=== PATIENT | male | born 2000 | race Caucasian/White ===

== ENCOUNTER 2020-09-07 16:54 | Emergency (ER) | payer BC ==
[~2020-09-07] VITALS: Ht 182.9 cm; Wt 61.0 kg
--- NOTE | 2020-09-07 17:45 | RAD ---
Exam: Left humerus 2 views INDICATION: Crush injury TECHNIQUE: Frontal and lateral views of the humerus Comparisons: None FINDINGS: Bone mineralization is normal. No acute or healed fractures. Soft tissues are unremarkable. Joint [place] are well-maintained. IMPRESSION: No acute osseous abnormality. Electronically signed by: Alma Cornell MD (09/07/2020 5:43 PM) YUSEF
--- NOTE | 2020-09-07 18:04 | ED.ADGEN ---
Past Medical History Past Medical History: No Pertinent History Past Surgical History: No Surgical History Smoking Status: Never Smoker Alcohol Use: None General Adult EDM: Chief Complaint: ANIMAL BITE HPI: HPI: Patient is a 19 year old male coming in for dog bite to left upper arm. Patient states his friend's dog bit him over his jacket and should come around. Patient was messing with the dog and patting his head back and forth between his hands. Dog's vaccinations are up-to-date. There is no bleeding or open skin wounds. Patient here because of pain. Is not take anything prior to arrival. Is concerned if he needs any further treatment for the dog bite. Otherwise been well. No mass past medical history. Tetanus up-to-date Review of Systems: Review of Systems: All other systems within normal limits except for as noted in the HPI Allergies: Allergies: Allergies Coded Allergies Type Severity Reaction Last Updated Verified Penicillins Allergy Severe THROAT SWELLING 09/07/20 Yes Physical Exam: PE: Constitutional: Well developed, well nourished, no acute distress, non-toxic appearance. [] HENT: Normocephalic, atraumatic, bilateral external ears normal, nose normal. [] Eyes: PERRLA, conjunctiva normal, no discharge. [] Neck: No rigidity, supple, no stridor. [] Cardiovascular: Regular rate and rhythm, brisk cap refill [] Lungs & Thorax: Non labored symmetric respirations, no tachypnea or respiratory distress [] Abdomen: Soft, nondistended. Skin: Warm, dry, no erythema, no rash. [] Back: Unremarkable Extremities: No deformities, range of motion grossly intact, no lower extremity edema. Left upper extremity exam: Ecchymosis and edema of left upper arm, no injury to left lower arm or distal. Range of motion intact at shoulder and elbow. Compartments soft. [] Neurologic: Alert and oriented X 3, no focal deficits noted. [] Psychologic: Affect normal, judgement normal, mood normal. [] Current Patient Data: Vital Signs: Vital Signs Date Time Temp Pulse Resp B/P (MAP) Pulse Ox O2 Delivery O2 Flow Rate FiO2 09/07/20 18:45 105 18 113/67 (82) 97 Room Air 09/07/20 16:58 98.0 98.0 EKG: EKG: [] Heart Score: C/O Chest Pain: No Risk Factors: Risk Factors: DM, Current or recent (<one month) smoker, HTN, HLP, family history of CAD, obesity. Risk Scores: Score 0 - 3: 2.5% MACE over next 6 weeks - Discharge Home Score 4 - 6: 20.3% MACE over next 6 weeks - Admit for Clinical Observation Score 7 - 10: 72.7% MACE over next 6 weeks - Early Invasive Strategies Radiology/Procedures: Radiology/Procedures: Exam: Left humerus 2 views INDICATION: Crush injury TECHNIQUE: Frontal and lateral views of the humerus Comparisons: None FINDINGS: Bone mineralization is normal. No acute or healed fractures. Soft tissues are unremarkable. Joint spaces are well-maintained. IMPRESSION: No acute osseous abnormality. [] Course & Med Decision Making: Course & Med Decision Making Pertinent Labs and Imaging studies reviewed. (See chart for details) No indication for rabies, there is no breaks in skin the bite did not penetrate patient's jacket. Discussed soft tissue contusion and return precautions for signs of compartment syndrome. [] Dragon Disclaimer: Ryan Disclaimer: This electronic medical record was generated, in whole or in part, using a voice recognition dictation system. Departure Departure Impression: Primary Impression: Contusion of muscle Disposition: 01 DC HOME SELF CARE/HOMELESS Condition: STABLE Referrals: NO PCP (PCP) Patient Instructions: RICE - Routine Care for Injuries Additional Instructions: Labs of his neighbor pain. Can use ice and elevation to help alleviate swelling. Return to emergency department if muscles become tight and unable to extend elbow joint HARPREET OLIVER MD Sep 07, 2020 18:04
[2020-09-07 18:45] VITALS: BP 113/67
== END 2020-09-07 18:45 | disposition home or self-care (01) ==
LOC: ER 16:54
DX: S40.012A Contusion of left shoulder, initial encounter (principal); R60.0 Localized edema; Z88.0 Allergy status to penicillin; W54.0XXA Bitten by dog, initial encounter; Y93.89 Activity, other specified; Y92.89 Other specified places as the place of occurrence of the external cause; Y99.8 Other external cause status
CPT/HCPCS: 73060; 99283